=== PATIENT | male | born 1985 | race Caucasian/White ===

== ENCOUNTER 2021-01-19 13:25 | Emergency (ER) | payer BC, OTHER ==
--- NOTE | 2021-01-19 14:56 | RAD REPORT ---
EXAM DESCRIPTION: CT - Head Brain Wo Cont - 01/19/2021 2:43 pm CLINICAL HISTORY: head and neck pain COMPARISON: Head angio dated 01/19/2021 TECHNIQUE: All CT scans are performed using dose optimization technique as appropriate and may inclu de automated exposure control or mA/KV adjustment according to patient size. FINDINGS: No intracranial hemorrhage, hydrocephalus or extra-axial fluid collection.No areas of brai n edema or evidence of midline shift. The paranasal sinuses and mastoids are clear. The calvarium is intact. IMPRESSION: No acute intracranial abnormality.
--- NOTE | 2021-01-19 14:57 | RAD REPORT ---
EXAM DESCRIPTION: CT - Neck Angio - 01/19/2021 2:43 pm CLINICAL HISTORY: head and neck pain COMPARISON: No comparisons TECHNIQUE: CT angiography of the neck vessels was performed with MIPs. All CT scans are performed using dose optimization technique as appropriate and may include automated exposure control or mA/KV adjustment according to patient size. FINDINGS: A left aortic arch is identified with normal three vessel configuration of the great vesse ls. No significant flow abnormality is seen of the common carotid bilaterally. No significant stenosis is identified involving the cervical segments of both internal carotid arteri es. Normal flow is seen within both vertebral arteries. IMPRESSION: No significant flow abnormality of the neck vessels is identified.
--- NOTE | 2021-01-19 14:58 | RAD REPORT ---
EXAM DESCRIPTION: CT - Head angio - 01/19/2021 2:43 pm CLINICAL HISTORY: head and neck pain COMPARISON: No comparisons TECHNIQUE: CT angiography of the head was performed with MIPs. All CT scans are performed using dose optimization technique as appropriate and may include automated exposure control or mA/KV adjustment according to patient size. FINDINGS: No evidence of aneurysm is detected. No flow-limiting stenosis or vascular malformation id entified. type right [employer]. Antegrade flow is seen in the vertebral arteries. The vertebral arteries are codominant. The visualized dural venous sinuses are patent. IMPRESSION: No significant flow abnormality is detected.
[2021-01-19 15:03] LABS: Magnesium 2.2 mg/dL (1.8-2.4); Potassium 4.3 mmol/L (3.5-5.1)
[2021-01-19] MEDS ORDERED: NA CHLORIDE 0.9% 1,000 ML ONE (15:14)
--- NOTE | 2021-01-19 15:48 | ER ---
Nurse's Notes [facility] Name: Edgar Mon Age: 35 yrs Sex: Male : 1985 Arrival Date: 01/19/2021 Time: 13:30 Bed 28 Private MD: Diagnosis: Cervical Neck Pain Presentation: 01/19 13:47 Chief complaint: Patient states: Back pain, neck pain after picking up some chemical. kg Then became dizzy, sat down, may have passed out unsure at 0800. Coronavirus screen: Client denies travel out of the [place] in the last 14 days. At this time, unable to obtain information related to travel outside the [place] At this time, the client does not indicate any symptoms associated with coronavirus-19. Ebola Screen: Patient negative for fever greater than or equal to 101.5 degrees Fahrenheit, and additional compatible Ebola Virus Disease symptoms Patient denies exposure to infectious person. Patient denies travel to an Ebola-affected area in the 21 days before illness onset. No symptoms or risks identified at this time. Initial Sepsis Screen: Does the patient meet any 2 criteria? No. Patient's initial sepsis screen is negative. Does the patient have a suspected source of infection? No. Patient's initial sepsis screen is negative. Risk Assessment: Do you want to hurt yourself or someone else? Patient reports no desire to harm self or others. Onset of symptoms was January 19, 2021 at 08:00. 13:47 Method Of Arrival: EMS: [facility] kg 13:47 Acuity: ROXANN 3 kg Triage Assessment: 13:51 General: Appears in no apparent distress. Behavior is calm, cooperative, appropriate kg for age, quiet. Pain: Complains of pain in Back of neck Pain currently is 2 out of 10 on a pain scale. at worst was 7 out of 10 on a pain scale. level that patient reports is acceptable is 2 out of 10 on a pain scale. Quality of pain is described as aching, dull, Pain began 4 hours ago. Derm: No deficits noted. 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 - Social history:: Smoking status: Patient denies any tobacco usage or history of. - Family history:: not pertinent. - Hospitalizations: : No recent hospitalization is reported. Screenin:01 Abuse screen: Denies threats or abuse. Denies injuries from another. Nutritional zb screening: No deficits noted. Tuberculosis screening: No symptoms or risk factors identified. Fall Risk None identified. Assessment: 15:01 General: Appears in no apparent distress. comfortable, Behavior is calm, cooperative. zb Pain: Complains of pain in neck Pain currently is 3 out of 10 on a pain scale. Quality of pain is described as heavy, pressure. Neuro: Level of Consciousness is awake, alert, obeys commands, Oriented to person, place, time, situation. Cardiovascular: Patient's skin is warm and dry. Respiratory: Airway is patent Respiratory effort is even, unlabored, Respiratory pattern is regular, Denies shortness of breath. GI: Abdomen is obese. Derm: Skin is intact, is healthy with good turgor, Skin is dry, Skin is normal. Musculoskeletal: Range of motion: intact in all extremities. 15:05 Reassessment: IV fluids infusing. zb 16:29 Reassessment: Patient appears in no apparent distress at this time. Patient and/or zb family updated on plan of care and expected duration. Pain level reassessed. Patient is alert, oriented x 3, equal unlabored respirations, skin warm/dry/pink. Iv fluid completed. Vital Signs: 13:47 BP 83 / 71; Pulse 79; Resp 20; Temp 97.1(TE); Pulse Ox 100% ; Weight 122.47 kg (R); kg Height 5 ft. 6 in. (167.64 cm) (R); 13:53 BP 97 / 45; kg 15:02 BP 88 / 70; Pulse 82; Resp 16; Pulse Ox 98% on R/A; zb 15:05 BP 94 / 64; Pulse 84; Resp 16; Pulse Ox 97% on R/A; zb 16:00 BP 102 / 57; Pulse 80; Resp 16; Pulse Ox 100% on R/A; zb 13:47 Body Mass Index 43.58 (122.47 kg, 167.64 cm) kg ED Course: 13:30 Patient arrived in ED. mr 13:51 Triage completed. kg 13:51 Arm band placed on right wrist. kg 13:55 Alex Woods MD is Attending Physician. rn 14:06 Jennyfer Barone RN is Primary Nurse. zb 14:30 Inserted saline lock: 20 gauge in left antecubital area, using aseptic technique. zb 14:43 CT Head Brain wo Cont In Process Unspecified. EDMS 14:43 CT Neck Angio In Process Unspecified. EDMS 14:43 CT Head Angio In Process Unspecified. EDMS 15:02 Patient has correct armband on for positive identification. Bed in low position. Call zb light in reach. Pulse ox on. NIBP on. Door closed. Noise minimized. PO fluids given. 16:29 No provider procedures requiring assistance completed. IV discontinued, intact, zb bleeding controlled, No redness/swelling at site. Pressure dressing applied. Administered Medications: 15:00 Drug: NS 0.9% 1000 ml Route: IV; Rate: 1000 ml; Site: left antecubital; zb 16:28 Follow up: Response: No adverse reaction; IV Status: Completed infusion; IV Intake: zb 1000ml Intake: 16:28 IV: 1000ml; Total: 1000ml. zb Outcome: 15:48 Discharge ordered by . rn 16:29 Discharged to home ambulatory. zb 16:29 Condition: stable 16:29 Discharge instructions given to patient, Instructed on discharge instructions, follow up and referral plans. Demonstrated understanding of instructions, follow-up care. 16:35 Patient left the ED. zb Signatures: Dispatcher [employer] [facility] Jacqui Lyons Alex Woods MD MD rn Brown, Zipporah, RN RN zb Swathi Sky RN RN kg
--- NOTE | 2021-01-19 15:48 | EDPHYS ---
Physician Documentation [facility] Name: Edgar Mon Age: 35 yrs Sex: Male : 1985 Arrival Date: 01/19/2021 Time: 13:30 Bed 28 Private MD: ED Physician Alex Woods HPI: 01/19 14:15 This 35 yrs old Male presents to ER via EMS with complaints of Heat Exposure, rn neck pain. 14:15 The patient or guardian complains of pain, that is acute. The symptoms are located on rn the neck. Onset: The symptoms/episode began/occurred today. Context: The problem was sustained at work, The neck injury/problem resulted from from unknown cause. Associated signs and symptoms: Pertinent positives: Neck pain, Pertinent negatives: fever, headache, bladder incontinence, bowel incontinence, nausea, numbness, tingling, vomiting, weakness. The pain does not radiate. Modifying factors: The symptoms are alleviated by nothing. the symptoms are aggravated by movement, pressure. Severity of symptoms: At their worst the symptoms were moderate, in the emergency department the symptoms have improved. The patient has not experienced similar symptoms in the past. The patient has not recently seen a physician. 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 Began to feel posterior cervical neck pain. No direct trauma. Denies hearing a pop or crack or snap. No radiation to arms or down back or to head. Feels like was properly hydrating, drink Powerade and 3 large bottles of water.. 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 - Social history:: Smoking status: Patient denies any tobacco usage or history of. - Family history:: not pertinent. - Hospitalizations: : No recent hospitalization is reported. ROS: 14:15 Constitutional: Negative for fever, chills, and weight loss, Eyes: Negative for injury, rn pain, redness, and discharge, Neck: Negative for swelling, Cardiovascular: Negative for chest pain, palpitations, and edema, Respiratory: Negative for shortness of breath, cough, wheezing, and pleuritic chest pain, Abdomen/GI: Negative for abdominal pain, nausea, vomiting, diarrhea, and constipation, Back: Negative for injury and pain, : Negative for injury, bleeding, discharge, and swelling, MS/Extremity: Negative for injury and deformity, Skin: Negative for injury, rash, and discoloration, Neuro: Negative for headache, weakness, numbness, tingling, and seizure. Exam: 14:15 Constitutional: This is a well developed, well nourished patient who is awake, alert, rn and in no acute distress. Ambulatory, and able to undress and dress himself without assistance Head/Face: Normocephalic, atraumatic. Eyes: Periorbital areas with no swelling, redness, or edema. Neck: Trachea midline, no masses palpated. Supple, full range of motion without nuchal rigidity, or vertebral point tenderness. No Meningismus. Mild tenderness and reproducible pain cervical and pericervical region without focal bony tenderness Cardiovascular: Regular rate and rhythm. No pulse deficits. Respiratory: No increased work of breathing, no retractions or nasal flaring. Skin: Warm, dry MS/ Extremity: Pulses equal, no cyanosis. Neuro: Awake and alert, GCS 15, oriented to person, place, time, and situation. Cranial nerves II-XII grossly intact. Motor strength 5/5 in all extremities. Sensory grossly intact. Cerebellar exam normal. Normal gait. Vital Signs: 13:47 BP 83 / 71; Pulse 79; Resp 20; Temp 97.1(TE); Pulse Ox 100% ; Weight 122.47 kg (R); kg Height 5 ft. 6 in. (167.64 cm) (R); 13:53 BP 97 / 45; kg 15:02 BP 88 / 70; Pulse 82; Resp 16; Pulse Ox 98% on R/A; zb 15:05 BP 94 / 64; Pulse 84; Resp 16; Pulse Ox 97% on R/A; zb 16:00 BP 102 / 57; Pulse 80; Resp 16; Pulse Ox 100% on R/A; zb 13:47 Body Mass Index 43.58 (122.47 kg, 167.64 cm) kg MDM: 13:55 Patient medically screened. rn 15:43 Differential diagnosis: arthritis, Cervical Disc Herniation Cervical Discogenic Pain rn Cervical Facet Syndrome Cervical Raiculopathy cervical strain, Spondylolisthesis Spondylosis torticollis. Data reviewed: vital signs, nurses notes, lab test result(s), radiologic studies, CT scan, and as a result, I will discharge patient. Counseling: I had a detailed discussion with the patient and/or guardian regarding: the historical points, exam findings, and any diagnostic results supporting the discharge/admit diagnosis, lab results, radiology results, the need for outpatient follow up, to return to the emergency department if symptoms worsen or persist or if there are any questions or concerns that arise at home. Response to treatment: the patient's symptoms have mildly improved after treatment, and as a result, I will discharge patient. Special discussion: I discussed with the patient/guardian in detail that at this point there is no indication for admission to the hospital. It is understood, however, that if the symptoms persist or worsen the patient needs to return immediately for re-evaluation. ED course: Findings and CT of the head or neck, negative CT angio of the neck, feels better. Will DC home with anti-inflammatories and ice and rest. Return precautions given and understood. 01/19 14:08 Order name: BMP; Complete Time: 15:28 rn 01/19 14:08 Order name: Magnesium; Complete Time: 15:28 rn 01/19 14:08 Order name: CT Head Brain wo Cont; Complete Time: 14:59 rn 01/19 14:08 Order name: CT Neck Angio; Complete Time: 14:59 rn 01/19 14:24 Order name: CK rn 01/19 14:25 Order name: Creatine Phosphokinase; Complete Time: 15:28 EDMS 01/19 14:08 Order name: CT Head Angio; Complete Time: 14:59 rn 01/19 14:08 Order name: IV Start; Complete Time: 15:03 rn Administered Medications: 15:00 Drug: NS 0.9% 1000 ml Route: IV; Rate: 1000 ml; Site: left antecubital; zb 16:28 Follow up: Response: No adverse reaction; IV Status: Completed infusion; IV Intake: zb 1000ml Disposition Summary: 01/19/21 15:48 Discharge Ordered Location: Home rn Problem: new rn Symptoms: have improved rn Condition: Stable rn Diagnosis - Cervical Neck Pain rn Followup: rn - With: Private Physician - When: As needed - Reason: Recheck today's complaints, Re-evaluation by your physician Discharge Instructions: - Discharge Summary Sheet rn - Heat Exhaustion rn - Neck Exercises rn - Preventing Heat Exhaustion, Adult rn Forms: - Medication Reconciliation Form rn - Thank You Letter rn - Antibiotic yarn man - Prescription Opioid Use rn - Work release form flor Signatures: Dispatcher [employer] EDAlex Templeton MD MD rn Brown, Zipporah, RN RN zb Swathi Sky RN RN kg
[2021-01-19 16:47] VITALS: TEMP 97.1
[2021-01-19 16:57] VITALS: BP 102/57; O2SAT 100
== END 2021-01-19 16:35 | disposition home or self-care (01) ==
LOC: ER 13:25
DX: M54.2 Cervicalgia (principal); I10 Essential (primary) hypertension
CPT/HCPCS: 80048; 36415; 83735; 82550; 70450; 70496; 70498; 96360; 99284; Q9967; J7030

== ENCOUNTER 2024-10-06 16:55 | Emergency (ER) | payer BC, SELFPAY ==
--- OUTSIDE RECORDS SUMMARY | 2024-10-06 16:58 | XMS REPORT | Continuity of Care Document ---
Author Name Unknown Address [address] [facility] [address] [place] [address] Organization [facility] [place] Address [address] 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 Phone MIESHA ESPINOZA Primary Care Physician MATTHEW Miller Attending Clinician Unavailable DR MIESHA ESPINOZA Attending Clinician Kenn sepulveda [phone] Attending Clinician DR MELI Levine Attending Clinician Diallo li [phone] Attending Clinician BERNARDO Strauss Attending Clinician MELI Levine Attending Clinician JOSE ALFREDO Stroud Attending Clinician ALINE Pelaez Attending Clinician DR MIESHA Miguel Admitting Clinician Kenn SCHREIBER, DR GARRISON Admitting Clinician Unavailab le Payers Payer Name Policy Type Policy Number Effective Date Expirati on Date Source [facility] [id number] [facility] [id number] Problems Condition Name Condition Details Condition Category Status Onset Date Resolution Date Last Treatment Date Treating Clinician Comments Source Contact with and (suspected ) exposure to other viral communicab le diseases CONTACT WITH AND (SUSPECTED ) EXPOSURE TO OTHER VIRAL COMMUNICAB LE DISEASES active [id number] SNOMED-CT Problem 2021-01-12 10:46:00 [facility] Allergic rhinitis ALLERGIC RHINITIS active [id number] SNOMED-CT Problem 2021-01-12 10:46:21 [facility] Viral syndrome VIRAL SYNDROME active [id number] SNOMED-CT Problem 2020-06-15 16:21:59 [facility] Productive cough PRODUCTIVE COUGH active 13004581 SNOMED-CT Problem 2020-06-15 16:22:21 [facility] Allergies, Adverse Reactions, Alerts Allergy Name Allergy Type Status Severity Reaction(s) Onset Date Inactive Date Treating Clinician Comments Source No Known Drug Allergie s MA Active UNKNOWN [facility] Social History Smoking Status Start Date Stop Date Source Never smoker (Never Smoked) Medications Ordered Medication Name Filled Medication Name Start Date Stop Date Current Medication? Ordering Clinician Indication Dosage Frequency Signature (SIG) Comments Components Source Lisinopril 40MG Oral Tablet 06-15 00:00: 00 No 1TABLET Lisinopril 40MG Oral Tablet 06/15/2020 Unknown BY MOUTH Daily 1 TABLET [id number] RxNorm TAKE 1 TABLET BY MOUTH Daily [facility] Sertraline HCl 100MG Oral Tablet 06-15 00:00: 00 No 1TABLET Sertraline HCl 100MG Oral Tablet 06/15/2020 Unknown BY MOUTH Daily 1 TABLET [id number] RxNorm TAKE 1 TABLET BY MOUTH Daily [facility] Lisinopril 40MG Oral Tablet 06-15 00:00: 00 No 1TABLET Lisinopril 40MG Oral Tablet 06/15/2020 Unknown BY MOUTH Daily 1 TABLET [id number] RxNorm TAKE 1 TABLET BY MOUTH Daily [facility] Sertraline HCl 100MG Oral Tablet - 00:00: 00 No 1TABLET Sertraline HCl 100MG Oral Tablet 06/15/2020 Unknown BY MOUTH Daily 1 TABLET [id number] RxNorm TAKE 1 TABLET BY MOUTH Daily [facility] Lisinopril 40MG Oral Tablet - 00:00: 00 No 1TABLET Lisinopril 40MG Oral Tablet 06/15/2020 Unknown BY MOUTH Daily 1 TABLET [id number] RxNorm TAKE 1 TABLET BY MOUTH Daily [facility] Sertraline HCl 100MG Oral Tablet - 00:00: 00 No 1TABLET Sertraline HCl 100MG Oral Tablet 06/15/2020 Unknown BY MOUTH Daily 1 TABLET [id number] RxNorm TAKE 1 TABLET BY MOUTH Daily [facility] Encounters Start Date/Time End Date/Time Encounter Type Admission Type Attending [facility] Care Department Encounter ID Source 2022-04-02 10:41:46 Outpatient [facility] [id number] [facility] 2024-06-11 08:59:00 2024-06-11 08:59:00 Outpatient SRIDHAR KAUFFMANMATTHEW Goetz [facility] [id number] [facility] 2023-05-06 07:20:00 2023-05-06 08:00:00 Outpatient Domitila ESPINOZA MIESHA [id number] [facility] [id number] [facility] 2022-11-16 09:43:00 2022-11-16 09:44:00 Outpatient MELI CHU [id number] [facility] [id number] [facility] 2022-09-25 19:17:00 2022-09-25 22:43:00 Emergency BERNARDO JAMISON [facility] [id number] [facility] 2022-07-20 11:03:00 2022-07-20 11:03:00 Outpatient MELI CHU [id number] [facility] [id number] [facility] 2022-04-02 10:43:00 2022-04-02 10:43:00 Outpatient [id number] 2022-04-02 10:43:00 2022-04-02 10:43:00 Unspecifie d abdominal pain 04/02/2022 [id number] SNOMED-CT 1.3.6.1.4 .1.95803 1.3.6.1.4.1 .51770 [id number] 2022-04-02 10:43:00 2022-04-02 10:43:00 Outpatient MELI CHU [id number] [facility] [id number] [facility] 2022-01-05 09:38:00 2022-01-05 09:38:00 Outpatient MELI CHU [id number] [facility] [id number] [facility] 2020-06-09 00:00:00 2020-06-09 00:00:[address] [facility] [id number] [facility] 2011-07-16 14:55:00 2011-07-16 14:55:00 Outpatient MELI BAIG [facility] [id number] [facility] 2009-01-28 08:18:00 2009-01-28 11:12:00 Emergency ER JOSE ALFREDO CERVANTES [facility] [id number] [facility] 2009-01-18 00:17:00 2009-01-18 02:45:00 Emergency ER ALINE CARLSON [facility] [id number] [facility] 2009-01-15 14:17:00 2009-01-15 14:17:00 Outpatient MLEI VELASQUEZ [facility] [id number] [facility] Results Test Description Test Time Test Comments Results Result Co mments Source [id number] 10:45:00* Test Item Value Reference Range Interpretation Comme nts AMYLASE (test code = 1798-8) 35 IU/L 25-115 CBC W/AUTO [id number] 10:45:00* Test Item Value Reference Range Interpretation Comme nts WBC (test code = 6690-2) 10.7 K/uL 4.1-11 RBC (test code = 09875-9) 5.38 M/uL 4.2-5.8 HEMOGLOBIN (test code = 717-9) 15.5 g/dL 13.4-17.4 HEMATOCRIT (test code = 65136-4) 47.0 % 40-52 MCV (test code = 787-2) 87 fL 82-96 MCH (test code = 785-6) 28.8 pg 27-33 MCHC (test code = MCHC) 33 g/dL 32-35 RDW (test code = 788-0) 13.6 % 11.6-16 PLATELETS (test code = 777-3) 97 K/uL 135-367 L MPV (test code = 04659-2) 10.4 fL 6.9-9.8 H %NEUT (test code = 770-8) 61.9 % 42.2-75.2 %LYMPH (test code = 736-9) 31 % 20-51 %MONO (test code = 5905-5) 5 % 2-15 %EOS (test code = 11298-7) 1 % 0-10 %BASO (test code = 54305-7) 1 % 0-2 MANUAL DIFF (test code = MAN UAL DIFF) NOT INDICATED RBC MORPH (test code = 6742-1) NOT INDICATED COMP META [id number] 10:45:00* Test Item Value Reference Range Interpretation Comme nts SODIUM (test code = 2951-2) 137 mmol/L 136-145 POTASSIUM (test code = POTASSIUM) 4.2 mmol/L 3.5-5.1 CHLORIDE (test code = 2075-0) 100 mmol/L 98-107 CO2 (test code = 1963-8) 31.6 mmol/L 21-32 ANION GAP (test code = ANION GAP) 5 GLUCOSE (test code = 2345-7) 87 mg/dL 74-106 BUN (test code = 3091-6) 14 mg/dL 5-27 CREATININE (test code = 2160-0) 0.83 mg/dL 0.6-1.3 BUN/CREAT (test code = BUN/CREAT) 17 TOTAL PROTEIN (test code = T OTAL PROTEIN) 7.7 g/dL 6.4-8.2 ALBUMIN (test code = ALBUMIN) 3.9 g/dL 3.4-5 GLOBULIN (test code = GLOBULIN) 3.8 g/dL 1.9-3.7 H A/G RATIO (test code = A/G RATIO) 1.0 1-2.6 CALCIUM (test code = 96535-4) 9.2 mg/dL 8.5-10.1 TOTAL BILI (test code = 1974-2) 0.3 mg/dL 0.2-1 ALKALINE PHOS (test code = ALKALINE PHOS) 94 U/L 46-116 SGOT/AST (test code = 1920-8) 16 U/L 15-37 SGPT/ALT (test code = 1744-2) 33 U/L 12-78 AGE (test code = AGE) 36 yrs AFR AMER GFR (test code = AF R AMER GFR) 128 mL/min NON-AA GFR (test code = NON- AA GFR) 106 mL/min [id number] 10:45:00* Test Item Value Reference Range Interpretation Comme [facility] LIPASE (test code = 3040-3) 58 IU/L 73-393 L [id number] 10:45:00* Test Item Value Reference Range Interpretation Comme nts AMYLASE (test code = 1798-8) 35 IU/L 25-115 CBC W/AUTO [id number] 10:45:00* Test Item Value Reference Range Interpretation Comme nts WBC (test code = 6690-2) 10.7 K/uL 4.1-11 RBC (test code = 69496-4) 5.38 M/uL 4.2-5.8 HEMOGLOBIN (test code = 717-9) 15.5 g/dL 13.4-17.4 HEMATOCRIT (test code = 50857-9) 47.0 % 40-52 MCV (test code = 787-2) 87 fL 82-96 MCH (test code = 785-6) 28.8 pg 27-33 MCHC (test code = MCHC) 33 g/dL 32-35 RDW (test code = 788-0) 13.6 % 11.6-16 PLATELETS (test code = 777-3) 97 K/uL 135-367 L MPV (test code = 84025-9) 10.4 fL 6.9-9.8 H %NEUT (test code = 770-8) 61.9 % 42.2-75.2 %LYMPH (test code = 736-9) 31 % 20-51 %MONO (test code = 5905-5) 5 % 2-15 %EOS (test code = 56990-8) 1 % 0-10 %BASO (test code = 51332-3) 1 % 0-2 MANUAL DIFF (test code = MAN UAL DIFF) NOT INDICATED RBC MORPH (test code = 6742-1) NOT INDICATED COMP META [id number] 10:45:00* Test Item Value Reference Range Interpretation Comme nts SODIUM (test code = 2951-2) 137 mmol/L 136-145 POTASSIUM (test code = POTASSIUM) 4.2 mmol/L 3.5-5.1 CHLORIDE (test code = 2075-0) 100 mmol/L 98-107 CO2 (test code = 1963-8) 31.6 mmol/L 21-32 ANION GAP (test code = ANION GAP) 5 GLUCOSE (test code = 2345-7) 87 mg/dL 74-106 BUN (test code = 3091-6) 14 mg/dL 5-27 CREATININE (test code = 2160-0) 0.83 mg/dL 0.6-1.3 BUN/CREAT (test code = BUN/CREAT) 17 TOTAL PROTEIN (test code = T OTAL PROTEIN) 7.7 g/dL 6.4-8.2 ALBUMIN (test code = ALBUMIN) 3.9 g/dL 3.4-5 GLOBULIN (test code = GLOBULIN) 3.8 g/dL 1.9-3.7 H A/G RATIO (test code = A/G RATIO) 1.0 1-2.6 CALCIUM (test code = 64769-3) 9.2 mg/dL 8.5-10.1 TOTAL BILI (test code = 1974-2) 0.3 mg/dL 0.2-1 ALKALINE PHOS (test code = ALKALINE PHOS) 94 U/L 46-116 SGOT/AST (test code = 1920-8) 16 U/L 15-37 SGPT/ALT (test code = 1744-2) 33 U/L 12-78 AGE (test code = AGE) 36 yrs AFR AMER GFR (test code = AF R AMER GFR) 128 mL/min NON-AA GFR (test code = NON- AA GFR) 106 mL/min [id number] 10:45:00* Test Item Value Reference Range Interpretation Comme nts LIPASE (test code = 3040-3) 58 IU/L 73-393 L [id number] 10:45:00* Test Item Value Reference Range Interpretation Comme nts AMYLASE (test code = 1798-8) 35 IU/L 25-115 CBC W/AUTO [id number] 10:45:00* Test Item Value Reference Range Interpretation Comme nts WBC (test code = 6690-2) 10.7 K/uL 4.1-11 RBC (test code = 87420-8) 5.38 M/uL 4.2-5.8 HEMOGLOBIN (test code = 717-9) 15.5 g/dL 13.4-17.4 HEMATOCRIT (test code = 83046-9) 47.0 % 40-52 MCV (test code = 787-2) 87 fL 82-96 MCH (test code = 785-6) 28.8 pg 27-33 MCHC (test code = MCHC) 33 g/dL 32-35 RDW (test code = 788-0) 13.6 % 11.6-16 PLATELETS (test code = 777-3) 97 K/uL 135-367 L MPV (test code = 23125-8) 10.4 fL 6.9-9.8 H %NEUT (test code = 770-8) 61.9 % 42.2-75.2 %LYMPH (test code = 736-9) 31 % 20-51 %MONO (test code = 5905-5) 5 % 2-15 %EOS (test code = 05310-5) 1 % 0-10 %BASO (test code = 90162-6) 1 % 0-2 MANUAL DIFF (test code = MAN UAL DIFF) NOT INDICATED RBC MORPH (test code = 6742-1) NOT INDICATED COMP META [id number] 10:45:00* Test Item Value Reference Range Interpretation Comme nts SODIUM (test code = 2951-2) 137 mmol/L 136-145 POTASSIUM (test code = POTASSIUM) 4.2 mmol/L 3.5-5.1 CHLORIDE (test code = 2075-0) 100 mmol/L 98-107 CO2 (test code = 1962-8) 31.6 mmol/L 21-32 ANION GAP (test code = ANION GAP) 5 GLUCOSE (test code = 2345-7) 87 mg/dL 74-106 BUN (test code = 3091-6) 14 mg/dL 5-27 CREATININE (test code = 2160-0) 0.83 mg/dL 0.6-1.3 BUN/CREAT (test code = BUN/CREAT) 17 TOTAL PROTEIN (test code = T OTAL PROTEIN) 7.7 g/dL 6.4-8.2 ALBUMIN (test code = ALBUMIN) 3.9 g/dL 3.4-5 GLOBULIN (test code = GLOBULIN) 3.8 g/dL 1.9-3.7 H A/G RATIO (test code = A/G RATIO) 1.0 1-2.6 CALCIUM (test code = 77584-9) 9.2 mg/dL 8.5-10.1 TOTAL BILI (test code = 1975-2) 0.3 mg/dL 0.2-1 ALKALINE PHOS (test code = ALKALINE PHOS) 94 U/L 46-116 SGOT/AST (test code = 1920-8) 16 U/L 15-37 SGPT/ALT (test code = 1744-2) 33 U/L 12-78 AGE (test code = AGE) 36 yrs AFR AMER GFR (test code = AF R AMER GFR) 128 mL/min NON-AA GFR (test code = NON- AA GFR) 106 mL/min [id number] 10:40:00SPEC SOURCE: CLEAN CATCH COLOR Yellow NORMAL: Straw 5778-6 LOINC CLARITY Clear NORMAL: Clear 5767-9 LOINC SPEC GRAVITY 1.020 1.005 - 1.020 5811-5 LOINC pH 7.0 5.5 - 7.5 5803-2 LOINC GLUCOSE Negative NORMAL: Negative 5792-7 LOINC BILIRUBIN Negative NORMAL: Negative 5770-3 LOINC KETONE Negative NORMAL: Negative 2514-8 LOINC PROTEIN Negative NORMAL: Negative 29327-9 LOINC NITRITE Negative NORMAL: Negative 5802-4 LOINC BLOOD Trace-intact NORMAL: Negative 53812-3 LOINC LEUK EST Negative NORMAL: Negative 5799-2 LOINC UROBILINOGEN 0.2 0.2 - 1.0 mg/dL 71571-3 LOINC MICROSCOPIC See Below WBC None Seen NORMAL: None Seen 5821-4 LOINC RBC 1 - 3 NORMAL: None Seen 93514-7 LOINC EPITHELIAL None Seen NORMAL: None Seen BACTERIA None Seen NORMAL: None Seen 24633-8 LOINC MUCOUS None Seen NORMAL: None Seen 8247-9 LOINC CASTS CRYSTALS TRICHOMONAS NORMAL: None Seen 33604-2 LOINC YEAST NORMAL: None Seen 10079-2 LOINC SPERM NORMAL: None Seen 77295-6 LOINC CULTURE? Not IndicatedURINALYSIS 2022-04-02 10:40:00SPEC SOURCE: CLEAN CATCH COLOR Yellow NORMAL: Straw 5778-6 LOINC CLARITY Clear NORMAL: Clear 5767-9 LOINC SPEC GRAVITY 1.020 1.005 - 1.020 5811-5 LOINC pH 7.0 5.5 - 7.5 5803-2 LOINC GLUCOSE Negative NORMAL: Negative 5792-7 LOINC BILIRUBIN Negative NORMAL: Negative 5770-3 LOINC KETONE Negative NORMAL: Negative 2514-8 LOINC PROTEIN Negative NORMAL: Negative 87790-2 LOINC NITRITE Negative NORMAL: Negative 5802-4 LOINC BLOOD Trace-intact NORMAL: Negative 74072-3 LOINC LEUK EST Negative NORMAL: Negative 5799-2 LOINC UROBILINOGEN 0.2 0.2 - 1.0 mg/dL 16173-5 LOINC MICROSCOPIC See Below WBC None Seen NORMAL: None Seen 5821-4 LOINC RBC 1 - 3 NORMAL: None Seen 39776-4 LOINC EPITHELIAL None Seen NORMAL: None Seen BACTERIA None Seen NORMAL: None Seen 15600-5 LOINC MUCOUS None Seen NORMAL: None Seen 8247-9 LOINC CASTS CRYSTALS TRICHOMONAS NORMAL: None Seen 11416-7 LOINC YEAST NORMAL: None Seen 10590-9 LOINC SPERM NORMAL: None Seen 31311-2 LOINC CULTURE? Not IndicatedURINALYSIS 2022-04-02 10:40:00SPEC SOURCE: CLEAN CATCH COLOR Yellow NORMAL: Straw 5778-6 LOINC CLARITY Clear NORMAL: Clear 5767-9 LOINC SPEC GRAVITY 1.020 1.005 - 1.020 5811-5 LOINC pH 7.0 5.5 - 7.5 5803-2 LOINC GLUCOSE Negative NORMAL: Negative 5792-7 LOINC BILIRUBIN Negative NORMAL: Negative 5770-3 LOINC KETONE Negative NORMAL: Negative 2514-8 LOINC PROTEIN Negative NORMAL: Negative 58639-1 LOINC NITRITE Negative NORMAL: Negative 5802-4 LOINC BLOOD Trace-intact NORMAL: Negative 47524-5 LOINC LEUK EST Negative NORMAL: Negative 5799-2 LOINC UROBILINOGEN 0.2 0.2 - 1.0 mg/dL 01296-2 LOINC MICROSCOPIC See Below WBC None Seen NORMAL: None Seen 5821-4 LOINC RBC 1 - 3 NORMAL: None Seen 16047-6 LOINC EPITHELIAL None Seen NORMAL: None Seen BACTERIA None Seen NORMAL: None Seen 20003-5 LOINC MUCOUS None Seen NORMAL: None Seen 8247-9 LOINC CASTS CRYSTALS TRICHOMONAS NORMAL: None Seen 01982-3 LOINC YEAST NORMAL: None Seen 24460-2 LOINC SPERM NORMAL: None Seen 24147-8 LOINC CULTURE? Not Indicated
[2024-10-06 19:34] LABS: Absolute Basophils 0.1 K/uL (0-0.5); Absolute Eosinophils 0.1 K/uL (0-0.5); Absolute Lymphocytes (CBC) 4.7 K/uL (0.7-4.9); Absolute Monocytes 1.1 K/uL (0.1-1.3); Absolute Neutrophil 8.6 K/uL (1.8-8.0); Basophils % 0.8 % (0-1.3); Eosinophils % 0.7 % (0-4.4); Hematocrit 44.4 % (39.6-49.0); Lymphocytes % 32.4 % (15.3-44.8); MCH 28.3 pg (27.0-35.0); MCHC 33.7 g/dL (32.0-36.0); MCV 84.1 fL (80-100); MPV 9.5 fL (7.6-11.3); Monocytes % 7.7 % (3.3-12.3); Neutrophils % 58.4 % (41.7-73.7); Nucleated Red Blood Cells % 0.1 % (0-0); Platelets 155 thou/uL (152-406); RBC Red Blood Cell Count 5.28 M/uL (4.33-5.43); Red Cell Distribution Width 13.8 % (12.1-15.2)
[2024-10-06 19:47] LABS: Albumin 3.7 g/dL (3.4-5.0); Albumin/Globulin Ratio 0.9 (1.1-1.8); Anion Gap 11.1 mEq/L (5.0-15.0); Bilirubin Total 0.3 mg/dL (0.2-1.0); Globulin 4.3 g/dL (2.3-3.5); Potassium 4.1 mEq/L (3.5-5.1)
--- NOTE | 2024-10-06 20:14 | ER ---
Nurse's Notes [facility] Name: Edgar Mon Age: 39 yrs Sex: Male : 1985 Arrival Date: 10/06/2024 Time: 16:55 Bed 9 Private MD: Diagnosis: Leg Laceration/ Open wound of lower leg Presentation: 10/06 17:17 Chief complaint: Patient states: hit his right upper leg on a door at home and it won't iw stop bleeding , hx of ITP. Coronavirus screen: At this time, the client does not indicate any symptoms associated with coronavirus-19. Ebola Screen: No symptoms or risks identified at this time. Complicating Factors: There are no complicating factors for this patient. Initial Sepsis Screen: Does the patient meet any 2 criteria? No. Patient's initial sepsis screen is negative. Does the patient have a suspected source of infection? No. Patient's initial sepsis screen is negative. Risk Assessment: Do you want to hurt yourself or someone else? Patient reports no desire to harm self or others. Onset of symptoms was October 06, 2024. 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 - Infectious Disease History:: Denies. - Social history:: Smoking status: Patient denies any tobacco usage or history of. Assessment: 20:00 General: Appears in no apparent distress. comfortable, Behavior is calm, cooperative, rg5 appropriate for age. Pain: Denies pain. Cardiovascular: No deficits noted. Respiratory: No deficits noted. 20:00 Musculoskeletal: Circulation, motion, and sensation intact. Range of motion: intact in rg5 all extremities. Vital Signs: 17:18 BP 142 / 87; Pulse 91; Resp 16; Temp 98.9(O); Pulse Ox 98% on NC; Weight 126.1 kg; iw Height 5 ft. 7 in. ; 20:00 BP 138 / 84; Pulse 88; Resp 18; Pulse Ox 99% ; Pain 0/10; rg5 17:18 Body Mass Index 43.54 (126.10 kg, 170.18 cm) iw 20:00 Pain Scale: Adult rg5 ED Course: 17:00 Patient arrived in ED. cj3 17:02 Chance Scanlon FNP-C [facility] 17:02 Alex Woods MD is Attending Physician. dr5 17:18 Triage completed. iw 17:20 Arm band placed on. iw 19:24 Inserted saline lock: 20 gauge in right antecubital area, using aseptic technique. rg5 Blood collected. Flushed with 10 mL NS. 20:00 Patient has correct armband on for positive identification. rg5 20:00 Assist provider with laceration repair on lateral aspect of right thigh that was 2.5 rg5 cm. or less using Steri-strips. Performed by Chance SCHWARZ Dressed with 4X4s, maverick wrap. Administered Medications: No medications were administered Medication: 20:00 VIS not applicable for this client. rg5 Outcome: 20:00 Discharged to home ambulatory, rg5 20:00 Condition: stable 20:00 Discharge instructions given to patient, 20:13 Discharge ordered by . dr5 20:24 Patient left the ED. rg5 Signatures: Hilaria Faria, RN RN iw Noe Mercedes RN RN rg5 Chance Scanlon FNP-C ELEVATORS INSPECTOR-Cdr5 Kecia Griffiths cj3 Corrections: (The following items were deleted from the chart) 17:20 17:18 BP 142 / 87; Pulse 91bpm; Resp 16bpm; Pulse Ox 95% Nasal Cannula; iw iw
--- NOTE | 2024-10-06 20:14 | EDPHYS ---
Physician Documentation [facility] Name: Edgar Mon Age: 39 yrs Sex: Male : 1985 Arrival Date: 10/06/2024 Time: 16:55 Bed 9 Private MD: ED Physician Alex Woods HPI: 10/06 17:17 This 39 yrs old Male presents to ER via Unassigned with complaints of dr5 Laceration To Leg. 17:17 Patient reports right upper leg laceration that's occurred when he hit the door at dr5 home. Patient has ITP and the bleeding does not stop. Patient is being managed by doctor for ITP every 6 months. Patient reports he is up to date on tetanus and would not like one during the visit.. 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 - Infectious Disease History:: Denies. - Social history:: Smoking status: Patient denies any tobacco usage or history of. ROS: 17:17 Constitutional: as per hpi dr5 Exam: 22:45 Constitutional: This is a well developed, well nourished patient who is awake, alert, dr5 and in no acute distress. Head/Face: Normocephalic, atraumatic. Eyes: Pupils equal round and reactive to light, extra-ocular motions intact. Lids and lashes normal. Conjunctiva and sclera are non-icteric and not injected. Cornea within normal limits. Periorbital areas with no swelling, redness, or edema. ENT: Nares patent. No nasal discharge, no septal abnormalities noted. Tympanic membranes are normal and external auditory canals are clear. Oropharynx with no redness, swelling, or masses, exudates, or evidence of obstruction, uvula midline. Mucous membranes moist. Chest/axilla: Normal chest wall appearance and motion. Nontender with no deformity. No lesions are appreciated. Cardiovascular: Regular rate and rhythm with a normal S1 and S2. Normal PMI, no JVD. No pulse deficits. Respiratory: Lungs have equal breath sounds bilaterally, clear to auscultation. No rales, rhonchi or wheezes noted. No increased work of breathing, no retractions or nasal flaring. Back: No spinal tenderness. No costovertebral tenderness. Full range of motion. Skin: Warm, dry with normal turgor. Small puncture wound noted to right lateral upper leg with bleeding resolved. Neuro: Awake and alert, GCS 15, oriented to person, place, time, and situation. Cranial nerves II-XII grossly intact. Motor strength 5/5 in all extremities. Sensory grossly intact. Cerebellar exam normal. Normal gait. Vital Signs: 17:18 BP 142 / 87; Pulse 91; Resp 16; Temp 98.9(O); Pulse Ox 98% on NC; Weight 126.1 kg; iw Height 5 ft. 7 in. ; 20:00 BP 138 / 84; Pulse 88; Resp 18; Pulse Ox 99% ; Pain 0/10; rg5 17:18 Body Mass Index 43.54 (126.10 kg, 170.18 cm) iw 20:00 Pain Scale: Adult rg5 MDM: 17:03 Medical Screening Exam initiated dr5 22:45 Differential diagnosis: superficial laceration, ITP, Contusion. Data reviewed: vital dr5 signs, nurses notes, lab test result(s). Care significantly affected by the following Social Determinants of Health: Poor access to healthcare and/or lack of insurance, Poor access to transportation, Problems related to employment. Counseling: I had a detailed discussion with the patient and/or guardian regarding the historical points, exam findings, and any diagnostic results supporting the discharge/admit diagnosis, the presence of at least one elevated blood pressure reading (>120/80) during this emergency department visit, lab results, the need for outpatient follow up, for definitive care, a family practitioner, to return to the emergency department if symptoms worsen or persist or if there are any questions or concerns that arise at home. ED course: Patient's bleeding has stopped. Placed moderate compression bandage over wound to wear overnight. CBC completed, printed out and results given to patient. Platelet levels are normal and he will take him to his doctor. All questions answered and bleeding has resolved.. 10/06 17:20 Order name: CBC with Diff; Complete Time: 20:09 dr5 10/06 17:20 Order name: CMP; Complete Time: 20:09 dr5 Administered Medications: No medications were administered Disposition Summary: 10/06/24 20:13 Discharge Ordered Notes: Location: Home dr5 Condition: Stable dr5 Diagnosis - Leg Laceration/ Open wound of lower leg dr5 Followup: dr5 - With: Emergency Department - When: As needed - Reason: Worsening of condition Followup: dr5 - With: Private Physician - When: 1 - 2 days - Reason: Recheck today's complaints, Continuance of care, Re-evaluation by your physician Discharge Instructions: - Discharge Summary Sheet dr5 - Puncture Wound dr5 Forms: - Medication Reconciliation Form dr5 - Patient Portal Instructions dr5 - Leadership Thank You Letter dr5 Addendum: 10/08/2024 09:04 Co-signature as Attending Physician, Alex Woods MD I reviewed the patient's care r n provided by the Advanced Practice Provider and agree with the diagnosis and treatment plan. Signatures: Dispatcher [employer] Hilaria Amato RN RN iw Nieto, Roman, MD MD rn Rhodes, Dustin, SODA DISPENSER-C SODA DISPENSER-Cdr5
[2024-10-08 21:52] VITALS: TEMP 98.9
[2024-10-08 21:54] VITALS: BP 138/84; O2SAT 99
== END 2024-10-06 20:24 | disposition home or self-care (01) ==
LOC: ER 16:55
DX: S81.812A Laceration without foreign body, left lower leg, initial encounter (principal)
CPT/HCPCS: 36415; 80053; 85025; 99284